=== PATIENT | female | born 1955 | race Caucasian/White ===

== ENCOUNTER → 2023-02-27 12:21 | Outpatient (BNVA) | payer MEDICARE, MEDICAID, SELFPAY | PROVIDERS: Referring Provider General Practice; Visit Provider Anesthesiology Pain Medicine | DX: M48.061 Spinal stenosis, lumbar region without neurogenic claudication (principal); M51.16 Intervertebral disc disorders with radiculopathy, lumbar region | CPT/HCPCS: 72110; 99203 ==

== ENCOUNTER 2023-04-10 15:40 | Outpatient (CLI) | payer MEDICARE, MEDICAID, SELFPAY ==
--- NOTE | 2023-04-10 16:00 | MR_ITS ---
WS: [id number] MRI LUMBAR SPINE NONCONTRAST HISTORY: M54.16 - Radiculopathy, lumbar region COMPARISON: Radiograph 02/27/2023 TECHNIQUE: Sagittal and axial multisequence imaging is submitted. Cervical, thoracic and lumbar curvature. 5 nonrib-bearing type lumbar vertebral bodies are counted. There may only be 11 thoracic vertebral pedro dies. Disc spaces are very mildly narrowed and desiccated throughout the lumbar spine. Conus terminates normally at L1-2 disc level. T12-L1: Asymmetric disc bulge with a moderate RIGHT foraminal disc protrusion with mild bilateral fac et joint arthritis. Disc contacts the traversing RIGHT L1 nerve root with moderate RIGHT foraminal st enosis. L1-L2: Mild annular disc bulging encroaching upon the ventral thecal sac. Bilateral facet arthritis. Mild subarticular recess and foraminal stenosis. L2-L3: L2 retrolisthesis by 3 mm. Facet joint arthritis. No disc protrusion. Mild foraminal stenosis. L3-L4: Diffuse annular disc bulging with moderate ligamentum flavum and facet arthritis. Very mild mahajan barticular recess encroachment with moderate LEFT and mild RIGHT foraminal stenosis. L4-L5: Diffuse annular disc bulging very slight retrolisthesis of L4. Shallow RIGHT foraminal disc pr otrusion. Marked ligamentum flavum and facet arthritis. Increased fluid in the facet joints greatest on the LEFT. Moderate to severe central, bilateral subarticular recess and foraminal stenosis. There is disc contacting the L4 and L5 nerve roots bilaterally. L5-S1: Asymmetric disc bulging. Annular fissures within the posterior disc. Disc contacts and slightl y displaces the ventral thecal sac. Mild contact on the traversing RIGHT S1 nerve root. Mild bilatera l foraminal stenosis, RIGHT greater than LEFT. Moderate facet arthritis. Marked atrophy psoas muscles. Mild inflammatory changes are noted on the RIGHT at the L5-S1 facet joshua nt and this adjacent soft tissues. IMPRESSION: 1. 5 lumbar type vertebral bodies are numbered for this examination. 2. L4-5: Moderate to severe central, bilateral subarticular recess and foraminal stenosis. Disc conta cts the traversing and exiting nerve roots bilaterally. 3. T12-L1: Moderate RIGHT foraminal disc protrusion with mild bilateral facet arthritis. Moderate RIG HT foraminal stenosis. 4. L3-4: Moderate LEFT and mild RIGHT foraminal stenosis. 5. Mild disc contact on the traversing RIGHT S1 nerve root with mild bilateral foraminal stenosis, RI GHT greater than LEFT. 6. Inflammatory changes on the RIGHT at the L5-S1 facet joint and adjacent soft tissues. Consider syn ovitis. Mild instability may produce similar changes.
== END 2023-04-10 15:41 | disposition home or self-care (01) ==
PROVIDERS: Visit Provider Anesthesiology Pain Medicine
DX: M54.16 Radiculopathy, lumbar region (principal); M48.07 Spinal stenosis, lumbosacral region; M51.26 Other intervertebral disc displacement, lumbar region; M47.817 Spondylosis without myelopathy or radiculopathy, lumbosacral region
CPT/HCPCS: 72148

== ENCOUNTER → 2023-04-17 08:45 | Outpatient (BNVA) | payer MEDICARE, MEDICAID, SELFPAY | PROVIDERS: Visit Provider Anesthesiology Pain Medicine | DX: M51.16 Intervertebral disc disorders with radiculopathy, lumbar region; M51.26 Other intervertebral disc displacement, lumbar region; M48.061 Spinal stenosis, lumbar region without neurogenic claudication | CPT/HCPCS: 99214 ==

== ENCOUNTER → 2023-05-03 12:52 | Outpatient (BNVA) | payer MEDICARE, MEDICAID, SELFPAY | PROVIDERS: Visit Provider Anesthesiology Pain Medicine | DX: M47.816 Spondylosis without myelopathy or radiculopathy, lumbar region (principal) | CPT/HCPCS: 64493; 64494; 64495; J3490 ==